=== PATIENT | female | born 1955 | race Caucasian/White ===

== ENCOUNTER 2019-10-04 05:52 | Outpatient (CLI) | payer OTHER ==
[~2019-10-04] VITALS: Ht 172 cm; Wt 79.5 kg
[2019-10-04] MEDS ORDERED: MULT-1029 PO (15:21)
[2019-10-04] MEDS ORDERED: FLUT9.9S NS (15:21)
== END 2019-10-04 15:27 | disposition home or self-care (01) ==
LOC: PREOP 05:52
PROVIDERS: ATTEND Specialist
DX: Z01.818 Encounter for other preprocedural examination (principal)

== ENCOUNTER 2019-10-07 06:30 | Day surgery (SDC) | payer OTHER ==
[~2019-10-07] VITALS: Ht 172 cm; Wt 79.5 kg
[~2019-10-07 06:30] MED LIST: FLUT9.9S NS; MULT-1029 PO
[2019-10-07] MEDS ORDERED: POVIDONE (BETADINE) OPHTH SOLN 5% 30 ML OP ONE (06:45)
[2019-10-07] MEDS ORDERED: LIDOCAINE PF 1% 2 ML VIAL IR PRN (06:45)
[2019-10-07] MEDS ORDERED: TIMOLOL MALEATE 0.5% 5 ML (TIMOPTIC) BTL OU PRN (06:45)
[2019-10-07] MEDS ORDERED: MOXIFLOXACIN OPHTH SOLN 5 MG/ML 0.3 ML SYRINGE OP ONE (06:45)
[2019-10-07 06:50] VITALS: BP 128/84
[2019-10-07] MEDS: TETRACAINE 0.5% OPHTH SOLN 4 ML BTL (SINGLE DOSE ONLY) OU PRN ×4 (06:55→07:12)
[2019-10-07] MEDS: CYCLOPENTOLATE 1% (CYCLOGYL) 2 ML DROPS OP SCH ×3 (07:02→07:12)
[2019-10-07] MEDS: PHENYLEPHRINE 10% OPHTH (NEO-SYN) 5 ML BTL OU SCH ×3 (07:02→07:12)
--- NOTE | 2019-10-07 07:54 | Ophthalmologist Pre-Op Note ---
Pre-Operative Progress Note H&P Reviewed The H&P was reviewed, patient examined and no changes noted. Date H&P Reviewed: Oct 07, 2019 Time H&P Reviewed: 07:54 Pre-Op Dx Cataract, Left Eye RUBY BUNN MD Oct 07, 2019 07:54
[2019-10-07] MEDS ORDERED: MIDAZOLAM 2 MG/2 ML (VERSED) VIAL ONE (07:57)
[2019-10-07] MEDS ORDERED: acetaZOLAMIDE ER 500 MG CAP (DIAMOX SEQUELS) PO ONE (08:00)
--- NOTE | 2019-10-07 08:19 | Ophthalmology Operative Report ---
Cataract removal/placement IOL PREOPERATIVE DIAGNOSIS: Cataract Left Eye POSTOPERATIVE DIAGNOSIS: Cataract Left Eye PROCEDURE: Cataract removal and placement of posterior chamber implant, left eye SURGEON: Wilfrido Bunn ANESTHESIA: Topical with sedation COMPLICATIONS: None ESTIMATED BLOOD LOSS: Minimal DESCRIPTION OF PROCEDURE: After proper informed consent was obtained, the patient, a [id number] female, was taken to the Operating Room and the left eye was anesthetized with tetracaine. The left eye was then prepped and draped in the usual manner. A wire lid speculum was placed. A paracentesis was made at the left hand position. Preservative free lidocaine was injected into the anterior chamber followed by viscoelastic. A clear corneal incision was made in the temporal position. A capsulorrhexis was preformed and the central nuclear and cortical material were removed. The posterior capsule was polished and an Dev 17.5 AU00T0 was placed into the capsular bag. The residual viscoelastic was aspirated and balanced saline solution was injected into the anterior chamber. Moxifloxacin was injected into the anterior chamber. The wound was checked and found to be water tight. The patient tolerated the procedure well without complications. WILFRIDO BUNN MD Oct 07, 2019 08:19
[2019-10-07 08:30] VITALS: BP 122/88
--- NOTE | 2019-10-07 14:39 | Anesthesia-General Post-Op ---
MAC Patient Condition Mental Status/LOC: Same as Preop Cardiovascular: Satisfactory Nausea/Vomiting: Absent Respiratory: Satisfactory Pain: Controlled Complications: Absent Post Op Complications Complications None Follow Up Care/Instructions Patient Instructions None needed. Anesthesiology Discharge Order Discharge Order Patient was seen this morning after the procedure and she was doing well, no complaints, stable vital signs, no apparent adverse anesthesia problems. ALYCE LLOYD DO Oct 07, 2019 14:39
== END 2019-10-07 08:30 | disposition home or self-care (01) ==
LOC: SDC 06:30
PROVIDERS: ATTEND Specialist
DX: H25.12 Age-related nuclear cataract, left eye (principal); M19.90 Unspecified osteoarthritis, unspecified site; Z90.710 Acquired absence of both cervix and uterus; Z79.899 Other long term (current) drug therapy; Z82.3 Family history of stroke; Z80.0 Family history of malignant neoplasm of digestive organs; Z82.49 Family history of ischemic heart disease and other diseases of the circulatory system

== ENCOUNTER → 2021-04-03 | Outpatient (CLI) | payer OTHER | LOC: ORTHO 10:46 | PROVIDERS: ATTEND Orthopaedic Surgery | DX: G56.02 Carpal tunnel syndrome, left upper limb (principal) | CPT/HCPCS: 99203 ==

== ENCOUNTER 2021-07-04 09:00 | Outpatient (CLI) | payer MEDICARE, OTHER ==
[~2021-07-04] VITALS: Ht 172.7 cm; Wt 83.9 kg
[2021-07-04 09:00] VITALS: BP 140/86
[2021-07-04] MEDS ORDERED: EPINEPHrine INJECTION 1 MG/ML AMP IM PRN (09:15)
[2021-07-04] MEDS ORDERED: ONDANSETRON 4 MG/2 ML (SDV) Z0FRAN IV PRN (09:15)
[2021-07-04] MEDS ORDERED: diphenhydrAMINE 50 MG/ML INJ (BENADRYL) IV PRN (09:15)
[2021-07-04] MEDS ORDERED: ACETAMINOPHEN 500 MG TAB (TYLENOL) PO PRN (09:15)
[2021-07-04] MEDS ORDERED: CASIRIVIMAB/IMDEVIMAB 1,200 MG in NS (IVPB) 250 ML IV ONE (09:15)
[2021-07-04 11:18] VITALS: BP 134/82
== END 2021-07-04 10:57 | disposition home or self-care (01) ==
LOC: INFUSION 09:00
PROVIDERS: ATTEND Family Medicine
DX: U07.1 COVID-19 (principal)

== ENCOUNTER → 2021-08-20 | Outpatient (CLI) | payer MEDICARE, OTHER | LOC: FSOP 14:45 | PROVIDERS: ATTEND Registered Nurse Emergency | DX: R35.0 Frequency of micturition (principal) | CPT/HCPCS: 87088 ==

== ENCOUNTER → 2021-08-20 | Outpatient (CLI) | LOC: LABNPT 14:39 → MERGE 14:39 | PROVIDERS: ATTEND Registered Nurse Emergency | DX: Z53.9 Procedure and treatment not carried out, unspecified reason (principal) ==

== ENCOUNTER → 2022-04-09 | Outpatient (CLI) | payer MEDICARE, OTHER | LOC: ORTHO 09:07 | PROVIDERS: ATTEND Orthopaedic Surgery | DX: G56.02 Carpal tunnel syndrome, left upper limb (principal) | CPT/HCPCS: G0463 ×2; 99212 ==